=== PATIENT | female | born 1985 | race Caucasian/White ===

== ENCOUNTER 2023-05-01 13:23 | Emergency (ER) | payer BC, SELFPAY ==
[2023-05-01] VITALS (28 sets, daily range): BP systolic 102–133; BP diastolic 53–109; PULSE 72–111; RESP 12–31; TEMP 36.4–37.2; O2SAT 93–100
[2023-05-01 15:27] LABS: Basophils Percent Auto 0.4 % (0.2-1.2); Eosinophils Absolute Auto 0.1 K/mm3 (0-0.3); Eosinophils Percent Auto 1.5 % (0-4.4); Hematocrit 21.1 % (37.0-47.0); Immature Granulocyte Absolute 0.02 K/mm3 (0.00-0.031); Immature Granulocyte Percent A 0.4 % (0-0.5); Lymphocytes Absolute Auto 1.91 K/mm3 (0.9-3.2); Lymphocytes Percent Auto 35.4 % (18.3-44.2); Mean Corpuscular HGB Conc 28.4 g/dl (32-36); Mean Corpuscular Hemoglobin 24.1 pg (26-34); Mean Corpuscular Volume 84.7 fl (80-100); Mean Platelet Volume 9.1 fl (7.4-10.4); Monocytes Absolute Auto 0.3 K/mm3 (0.1-0.6); Monocytes Percent Auto 6.1 % (2.6-8.5); Neutrophils Percent Auto 56.2 % (45.5-73.1); Platelet Count Result 431 k/mm3 (150-375); Red Blood Count 2.49 M/mm3 (4.2-5.4); Red Cell Distribution Width 22.6 % (11.5-14.5); White Blood Count 5.4 K/mm3 (4.5-10.0)
[2023-05-01 15:37] LABS: Alanine Aminotransferase 12 U/L (6-35); Albumin Level 3.6 g/dL (3.5-5.1); Alkaline Phosphatase 55 U/L (38-126); Anion Gap 3 mmol/L (8-16); Aspartate Amino Transferase 31 U/L (14-36); Bilirubin,Total 0.2 mg/dL (0.2-1.3); Blood Urea Nitrogen 8 mg/dL (7-17); Calcium 8.4 mg/dL (8.4-10.2); Carbon Dioxide 26 mmol/L (22-30); Chloride 106 mmol/L (98-107); Estimated CRCL calculation 82 ml/min; Estimated Glomerular Filt Rate > 60; Glucose 85 mg/dL (65-110); Potassium 3.1 mmol/L (3.4-5.0); Sodium 135 mmol/L (137-145)
[2023-05-01 15:42] LABS: Partial Thromboplastin Time 30.5 Seconds (22.3-36.8); Prothrombin Time 13.2 Seconds (11.1-14.7)
[2023-05-01 15:59] LABS: Anisocytosis 2+; Hypochromasia 1+; Platelet Estimate Slightly Increased (Adequate); Poikilocytosis 1+; Polychromasia 1+
[2023-05-01 16:01] LABS: Schistocytes Rare
--- NOTE | 2023-05-01 16:09 | ED.RECABL ---
HPI - Recheck/Abnormal Lab/Rx General Chief Complaint: Recheck/Abnormal Lab/Rx Stated Complaint: low hgb Time Seen by Provider: 05/01/23 14:46 History of Present Illness HPI narrative: Patient is a 37-year-old female presenting with anemia. Patient states that she has required numerous transfusions in the past. States that she has had extensive GI workups with endoscopy, colonoscopy, capsule endoscopy. States that nothing has been found that she continues to have recurrent anemia. Her PCP checked her hemoglobin about a week ago and it was around 7. They checked it again and told her to come to the ER today because it was around 6. States that she has been feeling increasingly weak and tired. States that she always feels like this when it gets low. She denies any recent bleeding. No further complaints. States that she has never seen a rehab trainer. Related Data Allergies Allergy/AdvReac Type Severity Reaction Status Date / Time No Known Allergies Allergy Verified 05/01/23 14:21 Review of Systems Review of Systems: All systems reviewed & are unremarkable except as noted in HPI and below Exam Narrative: GENERAL: Nontoxic, no acute distress, pale HEAD: Normocephalic, atraumatic. EYES: PERRLA and EOMI. ENT: Mucous membranes moist. NECK: Supple. CHEST: Clear to auscultation. No respiratory distress. HEART: tachycardic, regular rhythm ABDOMEN: Soft, nontender, nondistended EXTREMITIES: Normal range of motion. No edema. SKIN: Warm, dry, no rash. NEURO: Alert and oriented x3. PSYCH: Normal mood and affect. Course Vital Signs Vital signs: Vital Signs Temperature 98.1 F 05/01/23 13:45 Pulse Rate 111 H 05/01/23 13:45 Respiratory Rate 18 05/01/23 13:45 Blood Pressure 114/72 05/01/23 13:45 Pulse Oximetry 100 05/01/23 13:45 Oxygen Delivery Room Air 05/01/23 13:45 Temperature 97.8 F 05/01/23 22:40 Pulse Rate 74 05/01/23 22:40 Respiratory Rate 16 05/01/23 22:40 Blood Pressure 132/76 05/01/23 22:40 Pulse Oximetry 99 05/01/23 22:40 Oxygen Delivery Room Air 05/01/23 14:17 MDM - Recheck/Abnormal Lab/Rx MDM Narrative Medical decision making narrative: 37-year-old female presenting with acute on chronic anemia. She is mildly tachycardic but the remainder of her vitals are within normal limits. Blood work is concerning for hemoglobin of 6.0. Patient states that she has received numerous transfusions in the past. States that she would prefer getting a transfusion and then being discharged for outpatient management. patient given 2 units of packed red blood cells. Repeat H&H w/ hemoglobin of 8.2. safe for outpatient management. Advised close PCP and Hematology follow-up. Patient is agreeable this plan. Discharged in stable condition. Differential Diagnosis Differential diagnosis: Likely other (acute on chronic anemia) Medical Records Attestation: I reviewed the patient's medical records. Lab Data Attestation: I reviewed the patient's lab results. 05/01/23 22:40 05/01/23 15:15 Labs: Lab Results 05/01/23 05/01/23 05/01/23 Range/Units 15:15 15:35 22:40 WBC 5.4 (4.5-10.0) K/mm3 RBC 2.49 L (4.2-5.4) M/mm3 Hgb 6.0 L* 8.2 L (12.0-15.0) g/dL Hct 21.1 L 26.5 L (37.0-47.0) % MCV 84.7 (80-100) fl MCH 24.1 L (26-34) pg MCHC 28.4 L (32-36) g/dl RDW 22.6 H (11.5-14.5) % Plt Count 431 H (150-375) k/mm3 MPV 9.1 (7.4-10.4) fl Immature Gran % (Auto) 0.4 (0-0.5) % Neut % (Auto) 56.2 (45.5-73.1) % Lymph % (Auto) 35.4 (18.3-44.2) % [place] % (Auto) 6.1 (2.6-8.5) % Eos % (Auto) 1.5 (0-4.4) % Baso % (Auto) 0.4 (0.2-1.2) % Lymph # (Auto) 1.91 (0.9-3.2) K/mm3 [place] # (Auto) 0.3 (0.1-0.6) K/mm3 Eos # (Auto) 0.1 (0-0.3) K/mm3 Baso # (Auto) 0.0 (0.0-0.1) K/mm3 Abs Immat Gran (auto) 0.02 (0.00-0.031) K/mm3 Absolute Neuts (auto) 3.0 (1.3-6.7) K/mm
[2023-05-01] MEDS: TUBING, BLOOD PLUM PUMP TUBING 1 EACH XX ×2 (17:37→20:20)
[2023-05-01] MEDS: SODIUM CHLORIDE 0.9% IV 250 ML 30 ML IV CONT (17:37)
[2023-05-01] MEDS: ACETAMINOPHEN 500 MG TABLET 1000 MG PO (18:48)
[2023-05-01] MEDS: KETOROLAC 30 MG/ML VIAL (*BKC) IV PUSH (20:23)
[2023-05-01] MEDS: diphenhydrAMINE HCl INJ 50 MG/ML VIAL 25 MG IV PUSH (21:37)
[2023-05-01] MEDS: PROCHLORPERAZINE EDISYLATE 10 MG/2 ML VIAL IV PUSH (21:38)
[2023-05-01 22:48] LABS: Hematocrit 26.5 % (37.0-47.0); Hemoglobin 8.2 g/dL (12.0-15.0)
== END 2023-05-01 23:03 | disposition home or self-care (01) ==
PROVIDERS: Emergency Provider Emergency Medicine
DX: D64.9 Anemia, unspecified (principal)
CPT/HCPCS: 36415; 36430; 80053; 85014; 85018; 85025; 85610; 85730; 86850; 86900; 86901; 86923; 96361; 96374; 96375; 99285; A9270; J0780; J1200; J1885; J7050; P9016